=== PATIENT | female | born 1955 | race Hispanic/Latino ===

== ENCOUNTER 2025-05-05 10:44 | Emergency (ER) | payer MEDICARE, OTHER ==
[~2025-05-05] VITALS: Ht 149.9 cm; Wt 79.4 kg
[2025-05-05 11:01] VITALS: PULSE 73; RESP 18; TEMP 98.4
[2025-05-05] MEDS ORDERED: KETOROLAC TROMETHAMINE 30 MG/ML VIAL ONE (11:15)
[2025-05-05] MEDS: CYCLOBENZAPRINE HCL 10 MG TAB PO ONE (11:18)
[2025-05-05] MEDS: KETOROLAC TROMETHAMINE 60 MG/2 ML VIAL IM ONE (11:23)
[2025-05-05] MEDS ORDERED: CYCLOBENZAPRINE10 MG PO (11:29)
[2025-05-05 11:56] VITALS: BP 154/78; PULSE 74; RESP 18; O2SAT 100
== END 2025-05-05 12:00 | disposition home or self-care (01) ==
LOC: ER 10:51
DX: M54.50 Low back pain, unspecified (principal)
CPT/HCPCS: 99283; J1885

== ENCOUNTER 2025-05-21 07:05 | Emergency (ER) | payer MEDICARE, OTHER ==
[~2025-05-21] VITALS: Ht 149.9 cm; Wt 93.0 kg
[~2025-05-21 07:05] MED LIST: CYCLOBENZAPRINE10 MG PO
[2025-05-21 07:24] LABS: BASOPHILS % 0.7 % (0.0-1.0); EOSINOPHILS % 2.3 % (0.0-6.0); LYMPHOCYTES % 29.1 % (18.0-39.1); MONOCYTES % 7.9 % (4.4-11.3); NEUTROPHILS % 59.5 % (38.7-80.0); RED CELL DISTRIBUTION WIDTH 12.7 % (11.7-14.4)
[2025-05-21 07:36] LABS: INR 0.88
[2025-05-21 07:37] LABS: EST GLOMERULAR FILTRATION RATE 97.0 ML/MIN (>=60)
[2025-05-21] MEDS ORDERED: IOPAMIDOL 370 MG/ML 100 ML INFUS..BTL INJ ONE (07:46)
[2025-05-21] MEDS: SODIUM CHLORIDE 0.9% 1000ML 1,000 ML IV STA (07:48)
[2025-05-21] MEDS: MAGNESIUM/ALUMINUM/SIMETHICONE 30 ML UDC PO ONE (07:49)
[2025-05-21] MEDS: LIDOCAINE VISC 2% SOLN 15 ML UDC PO ONE (07:49)
[2025-05-21] MEDS: BELLADONNA ALK/PHENOBARBITAL 5 ML UDC PO ONE (07:49)
[2025-05-21] MEDS: ONDANSETRON HCL INJ 2MG/ML 2ML 2 MG/ML VIAL IV STA (07:49)
[2025-05-21] MEDS ORDERED: DICYCLOMINE HCL20 MG PO (09:10)
[2025-05-21] MEDS ORDERED: PANTOPRAZOLE SO40 MG PO (09:10)
[2025-05-21] MEDS ORDERED: ONDANSETRON ODT4 MG PO (09:10)
[2025-05-21 09:17] VITALS: PULSE 86; RESP 15; TEMP 98.8
[2025-05-21 10:06] VITALS: BP 135/70; PULSE 74; RESP 18; TEMP 98.6; O2SAT 98
== END 2025-05-21 10:00 | disposition home or self-care (01) ==
LOC: ER 07:14
DX: K29.70 Gastritis, unspecified, without bleeding (principal); R10.13 Epigastric pain; R11.0 Nausea; Z88.5 Allergy status to narcotic agent
CPT/HCPCS: 36415; 71045; 74177; 80053; 82550; 83690; 83735; 84484; 85025; 85610; 85730; 93005; 99284; J2405; J2470; J7030; Q9967